=== PATIENT | female | born 1950 | race Caucasian/White ===

== ENCOUNTER 2016-05-16 21:06 | Inpatient (IN) | payer MEDICARE ==
--- NOTE | ~2016-05-16 | DS ---
Unit #: [id number] #: [id number] Patient: CLAUDIA VALLE [id number] [facility] [address] [place] [address] [id number] I MR#: [id number] NAME: CLAUDIA VALLE ROOM: [facility] [place] Age: 65 Sex: F Admission Date: 05/16/2016 : 1950 Discharge Date: 05/18/2016 Attending Physician: Yaa Chisholm M.D. Primary Care Physician: Sergo Merida M.D. DISCHARGE SUMMARY IDENTIFYING DATA Ms. Valle is a 65-year-old white female who was self-referred to the hospital. DISCHARGE DIAGNOSES Psychiatric: benzodiazepine dependence, moderate and acute withdrawals; benzodiazepine-induced mood disorder. Medical: Hypertension and dyslipidemia. Stressors: Moderate psychosocial stressors. HISTORY OF PRESENT ILLNESS Please see initial psychiatric evaluation for details. PAST PSYCHIATRIC HISTORY Please see initial psychiatric evaluation for details. PAST MEDICAL HISTORY Please see initial psychiatric evaluation for details. HOSPITAL COURSE The patient was [facility] and she was oriented to the hospital environment. Routine p.r.n. medications were initiated and she was started on the benzodiazepine and detox protocol, and was closely monitored, however, she was seen to be having some significant medical complications and was seeing in medical consultation and sent to the emergency room at [facility] and was hospitalized and as such, was discharged from our care. DISCHARGE CONDITION Stable. PROGNOSIS Guarded. Dictated by... Maris North/catalina TD: 06/22/2016 13:49 JOB #: [id number] Unit #: [id number] #: [id number] Patient: CLAUDIA VALLE DISCHARGE SUMMARY Page 1 of 1 X Yaa Chisholm MD X DISCHARGE SUMMARY
--- NOTE | ~2016-05-16 | CR150 ---
[facility] A Service of [facility] RADIOLOGY TEXT RESULTS PATIENT: CLAUDIA ROSAS LOCATION: P2S P201- : 54 UNIT #: [id number] AGE: [address]: Yaa Chisholm MD SEX: F ORDER DR: [id number] [facility] [address] [place], [place] [address] [id number] MR#: [id number] Acc #: [id number] NAME: CLAUDIA ROSSA : 1950 SEX: F STUDY DATE/TIME: 05/17/2016 18:07 UNIT: P2S ROOM: [facility] STUDY DESCRIPTION: CR Hip Min 2 Views Lt Attending Physician: Yaa Chisholm M.D. Ordering Physician: Yaa Chisholm M.D. Primary Care Physician: Sergo Merida M.D. MEDICAL IMAGING REPORT This report is preliminary unless electronic signature is present EXAM Left hip. HISTORY Fell at home and then [facility] on left buttock, unable to bear weight since second fall. FINDINGS AP pelvis and frog lateral view of the left hip demonstrates a minimally displaced left proximal femur fracture representing an intertrochanteric fracture. Femoral neck and femoral head appear intact. No significant arthropathy of the hip. Soft tissues unremarkable. IMPRESSION Minimally displaced and possibly incomplete intertrochanteric fracture of the proximal left femur. [facility] is being contacted at the time of this report. Dictated by... Francisco Otero M.D. THIS IS AN ELECTRONICALLY VERIFIED REPORT Francisco Otero M.D. at 05/18/2016 6:32 PM BILLY/mattie TD: 05/18/2016 09:19 JOB #: [id number] MEDICAL IMAGING REPORT COPY
--- NOTE | ~2016-05-16 | HP ---
Unit #: [id number] #: [id number] Patient: KIRSTIE ROSAS [id number] [place] [address] [id number] I MR#: [id number] NAME: KIRSTIE ROSAS ROOM: P201 Age: 65 Sex: F Admission Date: 05/16/2016 : 1950 Attending Physician: Yaa Chisholm M.D. Admitting Physician: Yaa Chisholm M.D. Primary Care Physician: Sergo Merida M.D. HISTORY AND PHYSICAL REVISED REPORT HISTORY OF PRESENT ILLNESS Kirstie is a 65 year old admitted to [address] [place] [address] because of her abuse of benzodiazepines. She is detoxing. She has had other admissions to this facility to detox off drugs. PAST MEDICAL HISTORY 1. Long history of polysubstance abuse. 2. Coronary artery disease i. Status post one vessel CABG. ii. Angioplasty with stent placement. 3. History of ischemic bowel with resection. 4. High blood pressure 5. COPD. 6. Seizure disorder. 7. Hypothyroidism. 8. Chronic diarrhea. 9. Hyperlipidemia. PAST SURGICAL HISTORY 1. Single vessel CABG. 2. Small bowel resection. 3. Tubal ligation. 4. T & A. ALLERGIES No known drug allergies. SOCIAL HISTORY Smokes two packs per day for 45 plus years, quit some time ago. Denies alcohol. Has a long history of polysubstance abuse to include benzodiazepines and amphetamines. FAMILY HISTORY Medically noncontributory. REVIEW OF SYSTEMS CONSTITUTIONAL: No fever or chills. HEENT: Denies any sore throat, ear pain or runny nose. CARDIOVASCULAR: Denies chest pain, irregular heart rhythm or palpitations. CHEST: Denies shortness of breath or cough. No hemoptysis. GASTROINTESTINAL: Denies nausea, vomiting, diarrhea or chronic Unit #: [id number] #: [id number] Patient: KIRSTIE ROSAS constipation. ENDOCRINE: Denies history of increased thirst or urination. No recent significant weight loss or gain. GENITOURINARY: Denies dysuria, frequency, or hematuria. SKIN: Denies any rashes. HEMATOLOGIC: Denies history of increased bleeding or bruising. MUSCULOSKELETAL: Denies any hot, swollen joints. She does complain of left hip pain. She reports that she fell within hours of her admission. NEUROLOGIC: Denies problems with vision or speech. No frequent, severe headaches. No numbness, tingling or weakness in any extremities. Denies loss of bladder or bowel control. CURRENT MEDICATIONS 1. Protonix 40 mg daily 2. Zestril 40 mg daily 3. Paxil 20 mg daily 4. KCL 10 mEq b.i.d. 5. Mag-Ox 400 mg daily 6. Norvasc 5 mg daily 7. Synthroid 0.088 mg daily 8. Inderal 20 mg daily 9. Nitroglycerin sublingually p.r.n. 10. Meclizine 25 mg q.i.d. p.r.n. 11. Milk of Magnesia p.r.n. 12. Maalox p.r.n. 13. Tylenol p.r.n. 14. Lipitor 40 mg q.h.s. 15. Carafate 1 gram a.c. and h.s. 16. Trileptal 300 mg b.i.d. 17. Keppra 1000 mg b.i.d. 18. Hydralazine 25 mg t.i.d. 19. Multivitamin 1 daily PHYSICAL EXAMINATION GENERAL: Alert, very thin, emaciated appearing much older than her stated age of 65, in no apparent distress. VITAL SIGNS: Blood pressure 136/68, heart rate 70, respirations 16, temperature 98.6. WEIGHT: 90 pounds. HEIGHT: 5'4". SKIN: Warm and dry without rash or lesion. HEENT: Normocephalic. TMs not viewed. Oral and nasal passages clear. Conjunctivae clear. Pupils equal, round and reactive to light and accommodation. Extraocular movements intact. NECK: Supple without lymphadenopathy or thyromegaly. HEART: Regular rate and rhythm without murmur. LUNGS: Clear. ABDOMEN: Soft, nontender. : Not done. EXTREMITIES: There is full range of motion in the right hip. Limited rand of motion in the left hip with complaints of pain from her. Bruises noted along the left buttock. NEUROLOGICAL: She moves all extremities without focal deficit. 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 She can go from sitting to a standing back to sitting without assistance. She is unable to take any steps because of her complaints of pain in her left hip. IMPRESSION Unit #: [id number] #: [id number] Patient: KIRSTIE ROSAS 1. Psychiatric admission 2. The patient fell after she was admitted. X-ray is pending. 3. The patient is very under weight for age and height. RECOMMENDATIONS PSYCHIATRIC: Per psychiatrist. MEDICAL: 1. I see no contraindications to participating in facility's activities. 2. Await results of x-ray of the hip. 3. Continue Zestril, KCL, Mag-Ox, Norvasc, Synthroid, Inderal, Lipitor, Carafate, Trileptal, Keppra and hydralazine. Check a BMP and a TSH. 4. Ensure with each meal and at bedtime. MEDICAL PROGNOSIS Good. MEDICAL CONDITION Stable. Dictated by... Smiley Oates P.A.-C. for Maris Davis/viky TD: 05/18/2016 03:09 JOB #: [id number] HISTORY AND PHYSICAL X Simley Oates HISTORY AND PHYSICAL
--- NOTE | ~2016-05-16 | PA ---
Unit #: [id number] #: [id number] Patient: CLAUDIA ROSAS [id number] [facility] [address] [place] [address] [id number] I MR#: [id number] NAME: CLAUDIA ROSAS ROOM: P201 Age: 65 Sex: F Admission Date: 05/16/2016 : 1950 Date of Assessment: 05/17/2016 Attending Physician: Yaa Chisholm M.D. Admitting Physician: Yaa Chisholm M.D. Primary Care Physician: Sergo Merida M.D. PSYCHIATRIC ASSESSMENT DATE OF SERVICE 05/17/2016. IDENTIFYING DATA Ms. Rosas is a 65-year-old white female, who is a resident of [place], [place], and was brought to the hospital by her on a voluntary basis. CHIEF COMPLAINT "I've been using Klonopin, I need to stop, I need help." HISTORY OF PRESENT ILLNESS Ms. Rosas is a 65-year-old white female, who is known to us from previous encounter, was brought back to the hospital stating that she has been abusing Klonopin and that she needs to detox and has been stated "she has been in the hospital 5 times since January and always tells them that she has anxiety to get drugs and they give them to her and this last time they also gave her Percocet and I suspect that she does adjust to get the drug and she plans and going [facility], I know I'm a part of the program because I have been bringing her the drugs just so we can have happiness at home. I know I need to stop." The patient does report increasing depression, anxiety, irritability, restlessness, and feelings of hopelessness and helplessness, but denies any suicidal or homicidal ideations. SUBSTANCE ABUSE HISTORY The patient reports history of experimentation abuse of alcohol, cannabis, opioids, amphetamines, and benzodiazepines, and currently alcohol and benzodiazepine have been her drug of choice. PAST PSYCHIATRIC HISTORY The patient has had history of multiple inpatient chemical dependency and psychiatric treatment including [facility] in [place], in [place], in [place], and in [place] and review of the medical records indicate that currently she is not active in any treatment program, and is not seeing a psychiatrist, and not taking any psychotropic medications. PAST MEDICAL HISTORY The patient's medical history is significant for seizure disorder and gastroesophageal reflux disease. ALLERGIES Penicillin and Dilantin. Unit #: [id number] #: [id number] Patient: CLAUDIA ROSAS PERSONAL AND SOCIAL HISTORY A 65-year-old white female, who reports that she is and lives at home with her and has fairly decent social support system. MENTAL STATUS EXAMINATION An elderly white female who was casually dressed with fair personal hygiene, appears to be in no acute distress or discomfort. She was awake and alert on interaction with intact orientation to time, place, and person. Her mood was anxious and depressed with a congruent affect. Her speech was slow and goal directed. She denies any suicidal or homicidal ideations, and also denies any auditory or visual hallucinations. Her insight and judgment remain significantly impaired. DIAGNOSTIC IMPRESSION Psychiatric: Benzodiazepine dependence, moderate and acute withdrawals; opioid dependence, moderate; and benzodiazepine-induced mood disorder. Medical: Seizure disorder and gastroesophageal reflux disease. Stressors: Moderate psychosocial stressors. TREATMENT PLAN 1. The patient has presented with history of substance abuse and mood disorder, and has been decompensating and will need inpatient hospitalization for detoxification, safety, and stabilization. We will start her on detox protocol. We will closely monitor for any worsening withdrawal symptoms. 2. Supportive therapy was provided to the patient. 3. Safe, structured, and nourishing environment will be provided. ESTIMATED LENGTH OF STAY 5 to 7 days. ABILITY TO HELP SELF Limited. WILLINGNESS TO HELP SELF The patient appears to be willing to help self. STRENGTHS 1. Communicative. 2. Cooperative. PROBLEMS 1. Chronic dysphoric symptoms. 2. Chronic chemical dependency. 3. Poor social support system. DISCHARGE CRITERIA This will be contingent upon the patient's ability to go through detox without having any significant withdrawal symptoms as well as her ability to stay safe to herself, particularly after discharge from the hospital. Dictated by... Yaa Chisholm M.D. IAA/modl Unit #: [id number] #: [id number] Patient: CLAUDIA ROSAS TD: 05/17/2016 07:22 JOB #: [id number] PSYCHIATRIC ASSESSMENT X Yaa Chisholm MD PSYCHIATRIC ASSESSMENT
[2016-05-17 09:28] LABS: BASOPHIL% 0.4 % (0-2.5); EOSINOPHIL# 0.2 X10e3 (0-0.7); EOSINOPHIL% 2.5 % (0.0-7.0); HEMATOCRIT 35.8 % (35.0-45.0); HEMOGLOBIN 11.7 gm/dL (12.0-16.0); LYMPHOCYTE# 0.8 X10e3 (1.0-3.5); LYMPHOCYTE% 10.1 % (17.0-45.0); MEAN CELL VOLUME 93.2 FL (83-96); MEAN CORPUSCULAR HEMOGLOBIN 30.4 PG (28-34); MEAN CORPUSCULAR HGB CONC 32.6 g/dL (30-36); MEAN PLATELET VOLUME 7.9 FL (6.5-11.5); MONOCYTE# 0.7 X10e3 (0-1.0); MONOCYTE% 8.5 % (3.0-12.0); NEUTROPHIL# 6.6 X10e3 (1.5-7.1); NEUTROPHIL% 78.5 % (40-75); PLATELET COUNT 306 X10e3 (140-420); RED BLOOD COUNT 3.84 X10e (3.90-5.30); RED CELL DISTRIBUTION WIDTH 13.8 % (11.0-15.5); WHITE BLOOD COUNT 8.4 X10e3 (4.0-10.5)
[2016-05-17 09:34] LABS: DIFF IND NO
[2016-05-17 09:51] LABS: THYROID STIMULATING HORMONE 1.61 uIU/ml (0.34-5.60)
[2016-05-17 10:01] LABS: FREE THYROXIN (T4) 1.05 ng/dL (0.58-1.64)
[2016-05-17 10:08] LABS: ALBUMIN SERUM 3.8 g/dL (3.5-5.0); ALKALINE PHOSPHATASE 145 U/L (32-92); ALT (SGPT) 35 U/L (10-40); AST (SGOT) 26 U/L (10-42); BILIRUBIN,TOTAL 0.6 mg/dL (0.2-2.0); BLOOD UREA NITROGEN 17 mg/dL (9-23); BUN/CREATININE RATIO 21.25; CALCIUM SERUM 9.3 mg/dL (8.4-10.2); CARBON DIOXIDE 29 mmol/L (22-31); CHLORIDE 102 mmol/L (100-111); CREATININE SERUM 0.8 mg/dL (0.6-1.4); GLOM FILT RATE Estimated ABOVE60 mL/min (>60); GLUCOSE FASTING 106 mg/dL (70-110); PROTEIN TOTAL SERUM 6.1 g/dL (6.0-8.3); SODIUM 140 mmol/L (135-145)
== END 2016-05-18 01:40 | disposition short-term general hospital (02) | DRG 897 ==
LOC: P2S 21:06 → POF 05-17 13:54 → P2S 05-17 13:59
PROVIDERS: Psychiatry & Neurology Psychiatry
PROC: HZ2ZZZZ Detoxification Services for Substance Abuse Treatment (ICD-10-PCS; principal; 2016-05-16)
DX: F13.239 Sedative, hypnotic or anxiolytic dependence with withdrawal, unspecified (principal); I10 Essential (primary) hypertension; F13.24 Sedative, hypnotic or anxiolytic dependence with sedative, hypnotic or anxiolytic-induced mood disorder; G40.909 Epilepsy, unspecified, not intractable, without status epilepticus; K21.9 Gastro-esophageal reflux disease without esophagitis; I25.10 Atherosclerotic heart disease of native coronary artery without angina pectoris; Z95.1 Presence of aortocoronary bypass graft; Z95.5 Presence of coronary angioplasty implant and graft; E03.9 Hypothyroidism, unspecified; J44.9 Chronic obstructive pulmonary disease, unspecified; E78.5 Hyperlipidemia, unspecified; Z87.891 Personal history of nicotine dependence
CPT/HCPCS: 73502; 80053; 84439; 84443; 85025; 86592